=== PATIENT | female | born 1960 | race Caucasian/White ===

== ENCOUNTER 2018-07-20 00:49 | Outpatient (CLI) | payer MEDICAID, SELFPAY ==
--- NOTE | 2018-07-20 13:19 | DI.RAD_ITS ---
SYMPTOMS/DIAGNOSIS: CHRONIC COUGH, R05, OCCASIONAL WHEEZING, FEELING OF HEAVINESS OF CHEST PA AND LATERAL CHEST: The heart is normal in size. The lungs are clear. The mediastinal structures and pleura appear intact. CONCLUSION: Normal chest.
== END 2018-07-20 01:09 ==
PROVIDERS: PCP Naturopath; Visit Provider Naturopath
DX: R05 Cough (principal); R06.2 Wheezing; R07.89 Other chest pain
CPT/HCPCS: 71046

== ENCOUNTER 2019-01-02 12:29 | Outpatient (REF) | payer MEDICAID, SELFPAY ==
[2019-01-02 15:01] LABS: Clarity CLOUDY; Nucleated Cells 1477 /MM3 (0-0); Source L KNEE
[2019-01-02 15:02] LABS: Mononuclear Cells 100 % (0-0); Polynuclear Cells 0 % (0-0)
== END 2019-01-02 12:49 ==
LOC: LBN 12:29
PROVIDERS: PCP Naturopath; Visit Provider Orthopaedic Surgery
DX: M25.461 Effusion, right knee (principal); M25.561 Pain in right knee
CPT/HCPCS: 87070; 87205; 89051; 89060

== ENCOUNTER 2019-01-04 00:38 | Outpatient (CLI) | payer MEDICAID, SELFPAY ==
--- NOTE | 2019-01-04 14:50 | DI.MRI_ITS ---
SYMPTOMS/DIAGNOSIS: EFFUSION OF RIGHT KNEE JOINT, M25.461, RT KNEE PAIN X 2 WEEKS, TROUBLE BEARING WEIGHT, PT STATES RIGHT KNEE SPASMS INVOLUNTARILY, ? INJURY RIGHT KNEE MRI: Axial T2 fat-sat, coronal T2 fat-sat, and proton density coronal, and sagittal T2 fat-sat, proton density sagittal and proton density sagittal ACL pulse sequences were performed. The extensor mechanism of the knee is intact. A joint effusion is identified. The cruciate ligaments are intact. The lateral meniscus is unremarkable. There is no definite medial meniscal tear. Chondral defects are identified in the medial femoral condyle. The patella and patellar cartilage appear intact. The medial and lateral patellar retinaculum and medial and lateral collateral ligaments of the knee appear intact. SUMMARY: Joint effusion is demonstrated. There is an apparent medial femoral condyle contusion and chondral defects are identified involving the medial femoral condyle. There is no definite meniscal or cruciate tear.
== END 2019-01-04 00:58 ==
PROVIDERS: PCP Naturopath; Visit Provider Naturopath
DX: M25.461 Effusion, right knee (principal); M25.561 Pain in right knee; M24.10 Other articular cartilage disorders, unspecified site; S80.01XA Contusion of right knee, initial encounter
CPT/HCPCS: 73721